=== PATIENT | female | born 2005 | race Caucasian/White ===

== ENCOUNTER 2025-10-19 10:40 | Emergency (ER) | payer SELFPAY ==
[2025-10-19 11:08] VITALS: BP 121/76
--- NOTE | 2025-10-19 12:24 | ED.GENMED ---
History of Present Illness
General
Chief Complaint: Head Injury
Source: patient
Exam Limitations: none
Time Seen by Provider: 10/19/25 12:19
Nursing documentation reviewed up to this point in time: agreed with
History of Present Illness
History of Present Illness:
Patient is a 20-year-old female with history of PCOS who presents to the emergency department for evaluation following head injury this morning. Patient states that she was walking into work around 8 AM this morning when she slipped on ice striking
the left side of her head on the ground. She denies any loss of consciousness. However, she states that since fall she has had a relatively significant headache and dizziness. She has had some mild nausea which she attributes to possible motion
sickness during the car ride here. She denies any episodes of vomiting, visual changes. Patient denies any other injury sustained specifically neck pain, back pain, chest pain or pain in upper/lower extremities. She has been ambulating without
difficulty.
Patient states that she initially presented to urgent care for evaluation however was referred to the emergency department for imaging.
Review of Systems
Review of Systems
Allergies reviewed?: Yes
All Other Systems: ROS reviewed and negative except as documented in HPI and ROS
Phy Exam
Physical Exam
Physical Exam:
Vitals: Patient's vital signs are stable. Afebrile
General: Patient is well appearing, no acute distress
Skin: Warm and dry, no rashes or lesions
Head: Normocephalic, atraumatic
Throat: Protecting airway
Neck: Normal ROM, no cervical spine tenderness
Cardiac: Regular rate and rhythm
Pulm: No apparent respiratory distress
Abdomen: Nondistended
Extremities: No evidence of cyanosis or edema. Strength 5/5 in bilateral upper and lower extremities. No evidence of traumatic injury.
Neuro: Alert and oriented x 3 to person, place, time. CN II-XII grossly intact on examination. Normal finger-nose. Fluid speech and steady gait.
Psychiatric: Normal affect.
Course
Orders/Labs/Results
Orders:
Orders
10/19/25 11:[address] [CT Head W/o Iv Contrast] Urgent
Comment:
Reason For Exam: head injury with headache
10/19/25 12:24
Acetaminophen [Tylenol] 1,000 mg PO NOW STA
Vital Signs
Initial and Last Documented VS:
Initial Vital Signs
Temp Pulse Resp BP Pulse Ox
98.3 F 97 18 121/76 98
10/19/25 11:08 10/19/25 11:08 10/19/25 11:08 10/19/25 11:08 10/19/25 11:08
Last Documented Vital Signs
Temp Pulse Resp BP Pulse Ox
98.2 F 84 20 112/87 99
10/19/25 13:57 10/19/25 13:57 10/19/25 13:57 10/19/25 13:57 10/19/25 13:57
MDM/Problems Addressed
Differential Diagnosis Includes:
Not limited to: Concussion, contusion, intracranial bleeding,
MDM/Problems Addressed:
20-year-old female with headache and dizziness following a slip and fall on ice this morning. Patient struck head on ground, no LOC. No vomiting, visual changes, or neck pain. She is ambulated without difficulty without pain in extremities.
Vital stable. On exam, patient well-appearing in no distress. She has no evidence of traumatic injury to scalp or laceration. She has no neck tenderness. She is alert and oriented without focal neurologic deficits. No evidence of extremity
injuries on exam.
CT scan without evidence of intracranial bleeding fracture. Suspect likely concussion. She does state her symptoms have improved after dose of Tylenol here in the emergency department. She has not developed any neurologic deficits and ultimately
feel stable for discharge home with supportive care and primary care follow-up. Strict return precautions discussed.
Chronic conditions affecting care:
N/A
Acute Exacerbation and/or Progression of Chronic Illness:
N/A
*Radiology
Radiology exam reviewed: radiology read reviewed
*Pulse Oximetry
SaO2: 98
Oxygen Mode of Delivery: Room air
Patient hypoxic: no
*EKG
Interpreted by ED Provider?: NA
*Commercial Maintenance Technician Interpretation
Rate: Commercial Maintenance Technician- N/A
*Critical Care Note
Total Time (30-74mins, 75-104mins- exclusive of procedures): Not Applicable
ED Attending Note
-
Portions of this chart may have been created with voice recognition software.� Occasional wrong word or��sound alike� substitutions may have occurred due to the inherent limitations of voice recognition software.
Discharge Plan
Departure
Patient Disposition: Home (Routine Discharge)
Date of Disposition: 10/19/25
Time of Disposition: 13:44
Patient with high blood pressure during this ER visit?: No
Condition: Good
Discharge Problem:
Head injury, Concussion
Instructions: Concussion, Adult (DC)
Referrals:
Marcos Sousa MD [Family Provider, Pediatrics]
Activity Restrictions/Additional Instructions:
RETURN TO THE EMERGENCY DEPARTMENT WITH ANY SEVERE HEADACHE OR NECK PAIN, INTRACTABLE VOMITING, CHANGES IN VISION, PERSISTENT DIZZINESS OR CHANGES IN MENTAL STATUS, WORSENING IN CURRENT SYMPTOMS, OR ANY OTHER CONCERNS
- As discussed- your head CT showed no evidence of acute traumatic intracranial injury. You likely sustained a concussion.
- Please continue take Tylenol and/or Motrin as needed for headache. Stable hydrated and get plenty of rest.
- Follow-up with primary care for further evaluation/management to ensure that your symptoms are improving
Monitor your symptoms closely and return to the emergency department with any acute worsening/new symptoms or any other concerns
Interventions
Interventions:
*Neglect/Abuse Screening Last Done: 10/19/25 11:08
*Risk Screen - Suicide (C-SSRS) Last Done: 10/19/25 11:08
*Nursing Disposition Last Done: 10/19/25 13:57
ED- Neurological Assessment Last Done: 10/19/25 12:20
Discharge Date and Time
Discharge Date/Time: 10/19/25 13:58
Print Language: THAI
[2025-10-19] MEDS: TYLENOL 1000 MG PO (12:58)
[2025-10-19 13:57] VITALS: BP 112/87
== END 2025-10-19 13:58 | disposition home or self-care (01) ==
LOC: EMR 10:40
PROVIDERS: EMERGENCY PHYSICIAN Emergency Medicine; FAMILY PHYSICIAN Pediatrics
DX: S06.0X0A Concussion without loss of consciousness, initial encounter (principal); W00.0XXA Fall on same level due to ice and snow, initial encounter
CPT/HCPCS: 99284; 70450